=== PATIENT | male | born 1960 ===

== ENCOUNTER 2019-04-28 23:50 | Emergency (ER) | payer OTHER ==
[2019-04-29 02:02] LABS: Hematocrit 46 % (42-52); Mean Corpuscular HGB Conc 35 g/dL (31-36); Mean Corpuscular Hemoglobin 32 pg (27-31); Mean Corpuscular Volume 91 fL (80-94); Mean Platelet Volume 8.1 fL (7.4-10.4); Platelet Count 162 10^3/uL (150-450); Red Blood Count 5.03 10^6 /uL (4.18-5.48); Red Cell Distribution Width 13 % (10-15); White Blood Count 12.1 10^3/uL (3.5-10.8)
[2019-04-29 02:18] LABS: Albumin/Globulin Ratio 1.1 (1-3); BUN/Creatinine Ratio 23.2 (8-20); C Reactive Protein 189.9 mg/L (<8.01); Calcium 9.1 mg/dL (8.6-10.3); EGFR African American 98.9 (>60); EGFR Non-African American 81.7 (>60); Globulin 3.6 g/dL (2-4); Potassium 3.7 mmol/L (3.5-5.0); Total Protein 7.6 g/dL (6.4-8.9)
[2019-04-29 02:22] LABS: Myoglobin 41.2 ng/mL (17.4-105.7)
[2019-04-29 02:33] LABS: Urine Appearance Turbid; Urine Bacteria 1+ (Absent); Urine Bilirubin Negative (Negative); Urine Blood 3+ (Negative); Urine Color Amber; Urine Glucose Negative (Negative); Urine Ketones Trace (Negative); Urine Nitrite Negative (Negative); Urine Protein 2+(100 mg/dL) (Negative); Urine Red Blood Cell 3+(>10/hpf) (Absent); Urine Specific Gravity 1.036 (1.010-1.030); Urine Urobilinogen Negative (Negative); Urine White Blood Cell 3+(>20/hpf) (Absent)
[2019-04-29 02:46] LABS: ABS Basophils 0.1 10^3/ul (0-0.2); ABS Lymphocytes 2.5 10^3/ul (1.0-4.8); ABS Monocytes 0.9 10^3/ul (0-0.8); ABS Neutrophils 8.7 10^3/ul (1.5-7.7); Eosinophil % 0.1 %; Lymphocyte % 20.3 %
[2019-04-29] MEDS ORDERED: NS 0.9% 1000 ML** 1,000 ML IV ONE ×3 (03:03→07:41)
[2019-04-29] MEDS ORDERED: Piperacillin/Tazobac ADVAN(*) 3.375 GM in NS 0.9% 100 ML* 100 ML IVPB ONE (03:05)
--- NOTE | 2019-04-29 03:11 | ED ---
GI/ HPI - HPI Summary HPI Summary: This pt is a 58 Y/O M presenting to [facility] accompanied by his with a CC of urinary issues that started this afternoon. The pt states that he has been incontinent and producing brown colored urine since 1200 04/28/19. He states that he has been traveling with his . He also had chills and a fevers. He denies N/V/D, abdominal pain, CP, and SOB. He has been taking Tylenol to control the fevers and took the last one at 2330. He states that he had similar symptoms 10 years ago when he was diagnosed with a UTI. He has no pertinent PMHx. Home Medications Medication Instructions Recorded Confirmed Type NK [No Home Medications Reported] 04/29/19 04/29/19 History - History of Current Complaint Chief Complaint: EDUrogenitalProblems Time Seen by Provider: 04/29/19 00:51 Stated Complaint: FEVER, DARK URINE PER PT Hx Obtained From: Patient Onset/Duration: Started Hours Ago - 1200 04/28/19, Still Present Timing: Constant Current Severity: None Pain Intensity: 0 Location of Pain: None Associated Signs and Symptoms: Positive: Fever, Chills, UTI Symptoms - incontinence and brown colored urine. Negative: Nausea, Vomiting, Diarrhea, Dysuria, Abdominal Pain, Chest Pain Aggravating Factor(s): Nothing Alleviating Factor(s): Nothing - Allergy/Home Medications Allergies/Adverse Reactions: Allergies Allergy/AdvReac Type Severity Reaction Status Date / Time ceftriaxone [From Rocephin] Allergy Unknown Verified 04/29/19 00:29 Reaction Details ciprofloxacin Allergy Unknown Verified 04/29/19 00:29 Reaction Details PMH/Surg Hx/FS Hx/Imm Hx Previously Healthy: Yes Infectious Disease History: No Infectious Disease History: Denies: Traveled Outside the [place] in Last 30 Days - Social History Alcohol Use: Occasionally Substance Use Type: Reports: None Smoking Status (MU): Never Smoked Tobacco Review of Systems Positive: Fever, Chills Negative: Chest Pain Negative: Shortness Of Breath Negative: Abdominal Pain, Vomiting, Diarrhea, Nausea Positive: incontinence, other - brown colored urine All Other Systems Reviewed And Are Negative: Yes Physical Exam - Summary Physical Exam Summary: General: Well-developed, Well-nourished male. No acute distress. HEENT: Normocephalic, Atraumatic. Eyes: Conjuctiva normal, PERRL. Ears: TMs within normal limits. Nares: (-) discharge, (-) erythema. Oropharynx: Clear, mucous membranes moist, (-) exudates. Neck: Soft, FROM, (-) lymphadenopathy, (-) thyromegaly, (-) JVD. Cardiovascular: Normal sinus rhythm, (-) murmur. Lungs: Clear to auscultation bilaterally (-) wheezes, (-) rales, (-) rhonchi. Abdomen: Soft, non-tender, non-distended, (-) organomegaly, normal bowel sounds. Back: (-) CVA tenderness Extremities: No edema. Skin: Warm, dry, (-) rash. Neuro: Alert and oriented x3, no focal deficits. Psychiatric: Mood normal, affect normal. Triage Information Reviewed: Yes Vital Signs On Initial Exam: Initial Vitals Temp Pulse Resp BP Pulse Ox 100 F 118 16 142/88 97 04/29/19 00:20 04/29/19 00:20 04/29/19 00:20 04/29/19 00:20 04/29/19 00:20 Vital Signs Reviewed: Yes Diagnostics - Vital Signs Vital Signs Temp Pulse Resp BP Pulse Ox 04/29/19 02:29 97 22 111/84 93 04/29/19 02:01 95 28 92 04/29/19 01:59 94 19 116/77 93 04/29/19 01:33 97 29 93 04/29/19 01:30 100 13 116/81 92 04/29/19 00:20 100 F 118 16 142/88 97 - Laboratory Lab Results: Lab Results 04/29/19 04/29/19 04/29/19 Range/Units 01:43 01:52 01:52 WBC 12.1 H (3.5-10.8) 10^3/uL RBC 5.03 (4.18-5.48) 10^6 /uL Hgb 16.0 (14.0-18.0) g/dL Hct 46 (42-52) % MCV 91 (80-94) fL MCH 32 H (27-31) pg MCHC 35 (31-36) g/dL RDW 13 (10-15) % Plt Count 162 (150-450) 10^3/uL MPV 8.1 (7.4-10.4) fL Neut % (Auto) 71.7 % Lymph % (Auto) 20.3 % Cassia % (Auto) 7.4 % Eos % (Auto) 0.1 % Baso % (Auto) 0.5 % Absolute Neuts (auto) 8.7 H (1.5-7.7) 10^3/ul Absolute Lymphs (auto) 2.5 (1.0-4.8) 10^3/ul Absolute Monos (auto) 0.9 H (0-0.8) 10^3/ul Absolute Eos (auto) 0.0 (0-0.6) 10^3/ul Absolute Basos (auto) 0.1 (0-0.2) 10^3/ul Absolute Nucleated RBC 0.0 10^3/ul Nucleated RBC % 0.0 Sodium 136 (135-145) mmol/L Potassium 3.7 (3.5-5.0) mmol/L Chloride 107 (101-111) mmol/L Carbon Dioxide 21 L (22-32) mmol/L Anion Gap 8 (2-11) mmol/L BUN 22 (6-24) mg/dL Creatinine 0.95 (0.67-1.17) mg/dL Est GFR ( Amer) 98.9 (>60) Est GFR (Non-Af Amer) 81.7 (>60) BUN/Creatinine Ratio 23.2 H (8-20) Glucose 129 H (70-100) mg/dL Lactic Acid (0.5-2.0) mmol/L Calcium 9.1 (8.6-10.3) mg/dL Total Bilirubin 1.00 (0.2-1.0) mg/dL AST 41 H (13-39) U/L ALT 59 H (7-52) U/L Alkaline Phosphatase 101 (34-104) U/L Total Creatine Kinase 122 (10-223) U/L Myoglobin 41.2 (17.4-105.7) ng/mL C-Reactive Protein 189.90 H (<8.01) mg/L Total Protein 7.6 (6.4-8.9) g/dL Albumin 4.0 (3.2-5.2) g/dL Globulin 3.6 (2-4) g/dL Albumin/Globulin Ratio 1.1 (1-3) Lipase 42 (11.0-82.0) U/L Urine Color [place] Urine Appearance Turbid Urine pH 5.0 (5-9) Ur Specific [place] 1.036 H (1.010-1.030) Urine Protein 2+(100 mg/dl) A (Negative) Urine Ketones Trace A (Negative) Urine Blood 3+ A (Negative) Urine Nitrate Negative (Negative) Urine Bilirubin Negative (Negative) Urine Urobilinogen Negative (Negative) Ur Leukocyte Esterase 2+ A (Negative) Urine WBC (Auto) 3+(>20/hpf) A (Absent) Urine RBC (Auto) 3+(>10/hpf) A (Absent) Urine Bacteria 1+ A (Absent) Urine Glucose Negative (Negative) Urine Ascorbic Acid * A (Negative) 04/29/19 Range/Units 01:52 WBC (3.5-10.8) 10^3/uL RBC (4.18-5.48) 10^6 /uL Hgb (14.0-18.0) g/dL Hct (42-52) % MCV (80-94) fL MCH (27-31) pg MCHC (31-36) g/dL RDW (10-15) % Plt Count (150-450) 10^3/uL MPV (7.4-10.4) fL Neut % (Auto) % Lymph % (Auto) % Cassia % (Auto) % Eos % (Auto) % Baso % (Auto) % Absolute Neuts (auto) (1.5-7.7) 10^3/ul Absolute Lymphs (auto) (1.0-4.8) 10^3/ul Absolute Monos (auto) (0-0.8) 10^3/ul Absolute Eos (auto) (0-0.6) 10^3/ul Absolute Basos (auto) (0-0.2) 10^3/ul Absolute Nucleated RBC 10^3/ul Nucleated RBC % Sodium (135-145) mmol/L Potassium (3.5-5.0) mmol/L Chloride (101-111) mmol/L Carbon Dioxide (22-32) mmol/L Anion Gap (2-11) mmol/L BUN (6-24) mg/dL Creatinine (0.67-1.17) mg/dL Est GFR ( Amer) (>60) Est GFR (Non-Af Amer) (>60) BUN/Creatinine Ratio (8-20) Glucose (70-100) mg/dL Lactic Acid 1.2 (0.5-2.0) mmol/L Calcium (8.6-10.3) mg/dL Total Bilirubin (0.2-1.0) mg/dL AST (13-39) U/L ALT (7-52) U/L Alkaline Phosphatase (34-104) U/L Total Creatine Kinase (10-223) U/L Myoglobin (17.4-105.7) ng/mL C-Reactive Protein (<8.01) mg/L Total Protein (6.4-8.9) g/dL Albumin (3.2-5.2) g/dL Globulin (2-4) g/dL Albumin/Globulin Ratio (1-3) Lipase (11.0-82.0) U/L Urine Color Urine Appearance Urine pH (5-9) Ur Specific [place] (1.010-1.030) Urine Protein (Negative) Urine Ketones (Negative) Urine Blood (Negative) Urine Nitrate (Negative) Urine Bilirubin (Negative) Urine Urobilinogen (Negative) Ur Leukocyte Esterase (Negative) Urine WBC (Auto) (Absent) Urine RBC (Auto) (Absent) Urine Bacteria (Absent) Urine Glucose (Negative) Urine Ascorbic Acid (Negative) Result Diagrams: 04/29/19 01:52 04/29/19 01:52 Lab Statement: Any lab studies that have been ordered have been reviewed, and results considered in the medical decision making process. Re-Evaluation - Re-Evaluation First Eval Re-Evaluation Time: 07:26 Comment: discusses patient's CT results GIGU Course/Dx - Course Course Of Treatment: This pt is a 58 Y/O M presenting to [facility] accompanied by his with a CC of urinary issues that started this afternoon. The pt states that he has been incontinent and producing brown colored urine since 1200 . He also states having fevers and chills. His PE found no acute abnormalities. His labratory results are consistent with a UTI. He alsio has an increased C-Reactive protein at 189.90 and BUN/Creatinine ratio at 23.2. He will be a sign out to Dr. Augustine at shift change 0700 04/29/19 pending the interpretation of his CT A/P. - Diagnoses Provider Diagnoses: Pyelonephritis Discharge ED - Sign-Out/Discharge Documenting (check all that apply): Sign-Out Patient Signing out patient TO: Blanca Augustine Patient Received Moderate/Deep Sedation with Procedure: No - Discharge Plan Condition: Stable Disposition: HOME Prescriptions: Sulfamethox/Trimethoprim DS* [Bactrim DS 800/160 TAB*] 1 tab PO BID 7 Days #14 tab Patient Education Materials: Kidney Infection (ED) Forms: *Work Release Referrals: Brandon Martinez MD [Medical Doctor] - 2 Days Additional Instructions: You were seen in the emergency department for problems. Your labs showed a urine infection. Please take Bactrim twice a day for 7 days. Please follow up with her urologist. 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 Cortical thinning of the right kidney. Multiple nonobstructing stones in the lower pole of the right kidney measuring 7 mm. A subcentimeter cyst in the upper pole of the right kidney. If any studies were not completed at the time of discharge you will be called with the relevant results. Please follow up with your primary care doctor in next 2-3 days and return to emergency department for worsening or concerning symptoms. It was a pleasure taking care of you today. - Billing Disposition and Condition Condition: STABLE Disposition: Home - Attestation Statements Document Initiated by Geoffrey: Yes Documenting Scribe: Chris Marin Provider For Whom Geoffrey is Documenting (Include Credential): Yue Akins MD Scribe Attestation: IChris, scribed for Yue Akins MD on 04/29/19 at 1932. Scribe Documentation Reviewed: Yes Provider Attestation: The documentation as recorded by the Chris dumont accurately reflects the service I personally performed and the decisions made by me, Yue Akins MD Status of Scribe Document: Viewed
[2019-04-29] MEDS ORDERED: Iohexol 300* (CONTRAST) 10 ML SDV IV ONE (05:37)
[2019-04-29] MEDS ORDERED: Acetaminophen TAB* 325 MG PO ONE (07:34)
--- NOTE | 2019-04-29 07:45 | ED ---
Progress - Progress Note Progress Note: Patient was signed out to Dr. Augustine by Dr. Akins at shift change 0700 pending the interpretation of his CT A/P. 58-year-old male with a history of chronic dilation of the right kidney, prior UTI presents wit low-grade fever, urinary incontinence found to have a UTI on labs. She shows likely chronic dilation of the right kidney, multiple kidney stones and obstructing. Patient states he feels much better after IVF and antibiotics. Patient states he will follow up w his urologist in [facility]. Patient has multiple drug allergies, given bactrim DS BID x7 days. Patient denies further episodes of incontinence, no LE weakness or tingling, no bowel incontinence. 8:30 HR 99, patient feels well. Plan for discharge to home w follow up w his urologist and return for worsening symptoms. Abdomen/Pelvis CT: Per radiologist, Marked right-sided hydronephrosis with nondilated ureter likely chronic. ED physician has reviewed this imaging report. Re-Evaluation - Re-Evaluation First Eval Re-Evaluation Time: 07:26 Comment: discusses patient's CT results Course/Dx - Course Course Of Treatment: Patient was signed out to Dr. Augustine by Dr. Akins at shift change 0700 04/29/19 pending the interpretation of his CT A/P. - Diagnoses Provider Diagnoses: Pyelonephritis Discharge ED - Sign-Out/Discharge Documenting (check all that apply): Patient Departure - discharge Patient Received Moderate/Deep Sedation with Procedure: No - Discharge Plan Condition: Stable Disposition: HOME Prescriptions: Sulfamethox/Trimethoprim DS* [Bactrim DS 800/160 TAB*] 1 tab PO BID 7 Days #14 tab Patient Education Materials: Kidney Infection (ED) Referrals: Brandon Martinez MD [Medical Doctor] - 2 Days Additional Instructions: You were seen in the emergency department for problems. Your labs showed a urine infection. Please take Bactrim twice a day for 7 days. Please follow up with her urologist. 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 Cortical thinning of the right kidney. Multiple nonobstructing stones in the lower pole of the right kidney measuring 7 mm. A subcentimeter cyst in the upper pole of the right kidney. If any studies were not completed at the time of discharge you will be called with the relevant results. Please follow up with your primary care doctor in next 2-3 days and return to emergency department for worsening or concerning symptoms. It was a pleasure taking care of you today. - Billing Disposition and Condition Condition: STABLE Disposition: Home - Attestation Statements Document Initiated by Geoffrey: Yes Documenting Scribe: Codie Frey Provider For Whom Geoffrey is Documenting (Include Credential): Dr. Blanca Augustine MD Scribe Attestation: ICodie , scribed for Dr. Blanca Augustine MD on 04/29/19 at 0839. Scribe Documentation Reviewed: Yes Provider Attestation: The documentation as recorded by the Codie dumont accurately reflects the service I personally performed and the decisions made by me, Dr. Blanca Augustine MD Status of Scribe Document: Viewed
[2019-04-29] MEDS ORDERED: Sulfamethox/Trimethoprim DS 800/160* TAB PO ONE (08:05)
[2019-04-29 09:10] VITALS: BP 101/72
--- NOTE | 2019-05-01 05:55 | PN ---
Progress Note - Progress Note Date of Service: 05/01/19 Note: patient preliminary urine culture grew E coli 25-50,000. patient placed on bactrim. will wait for final culture for sensitivity.
--- NOTE | 2019-05-02 06:06 | PN ---
Progress Note - Progress Note Date of Service: 05/02/19 Note: patient placed on bactrim which final culture showed is sensitive too. no further action required.
== END 2019-04-29 08:41 | disposition home or self-care (01) ==
LOC: ED 23:50
DX: N12 Tubulo-interstitial nephritis, not specified as acute or chronic (principal); Z87.442 Personal history of urinary calculi; R50.9 Fever, unspecified
CPT/HCPCS: 36415; 74177; 80053; 81003; 81015; 82550; 83605; 83690; 83874; 85025; 86140; 87040; 87077; 87086; 87186; 96361; 96365; 99284; A9270-GY; J2543; Q9967